=== PATIENT | male | born 1970 | race Caucasian/White ===

== ENCOUNTER 2023-03-24 18:38 | Inpatient (IN) | payer BC, MEDICAID, SELFPAY ==
[2023-03-24 18:54] VITALS: BMI 28.3
[2023-03-24 20:04] VITALS: BP 152/92; PULSE 106; RESP 18; TEMP 37.1; O2SAT 97
[2023-03-24] MEDS: trazodone 50 mg Tablet PO (20:40)
[2023-03-24] MEDS: hyDROXYzine 25 mg Capsule 50 MG PO (20:40)
[2023-03-24] MEDS: LORazepam 2 mg/mL INJ 1 mL IM (22:28)
[2023-03-24] MEDS: haloperidol inj 5 mg/mL INJ 1 mL IM (22:29)
[2023-03-24] MEDS: diphenhydrAMINE 50 mg/mL SDV 1mL IM (22:30)
--- NOTE | 2023-03-24 22:30 | PC.NURSE ---
Addendum entered and electronically signed by Marjorie Caicedo RN 03/24/23 23:53: Patient received the medication voluntary Original Note: Patient behavior Patient was speaking in word salad, taking scrubs off and trying to go into the females room multiple times. Given IM B-52
[2023-03-25 06:00] VITALS: RESP 18
--- NOTE | 2023-03-25 06:40 | PC.NURSE ---
Did not obtain patients vital due to patient sleeping and manic behavior resulting in B52.
--- NOTE | 2023-03-25 08:55 | PC.OT ---
OT EVALUATION ATTEMPTED. PATIENT SLEEPING SOUNDLY AND DOES NOT AWAKEN TO NAME. WILL ATTEMPT AGAIN AT A LATER TIME.
--- NOTE | 2023-03-25 10:17 | PC.NURSE ---
Unable to assess d/t patient being too delusional to follow requests. When this RN attempted to wake patient to assess him he began mumbling statements that didn't make much sense. He stated, roll my bed around. This RN stated there were no wheels on his bed and he replied, ya there are, it's on hydraulics. He then fell back asleep and this RN was unable to get him to stay awake long enough to do any of the assessment.
[2023-03-25 14:00] VITALS: BP 126/73; PULSE 73; RESP 16; TEMP 36.7; O2SAT 99
--- NOTE | 2023-03-25 15:32 | PC.OT ---
OT EVALUATION ATTEMPTED THIS P.M. PATIENT REMAINS ASLEEP.
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
[2023-03-25] MEDS: nicotine 2 mg Gum BUCCAL ×2 (16:24→21:19)
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
--- NOTE | 2023-03-25 18:16 | PC.NURSE ---
in room. patient appears to be confused. patient thinks somebody stole his cup, which is in his room. patient agitated, states that he wants a bedside table for his food, states that he had a table earlier in the day.
[2023-03-25] MEDS: ibuprofen 600 mg Tablet PO (20:55)
[2023-03-25] MEDS: OLANZapine 5 mg ODT PO (20:56)
[2023-03-25] MEDS: trazodone 50 mg Tablet PO (21:19)
[2023-03-25] MEDS: hyDROXYzine 25 mg Capsule 50 MG PO (21:19)
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
[2023-03-25 22:00] VITALS: RESP 18
--- NOTE | 2023-03-26 01:19 | PC.NURSE ---
Patient refused vitals. RR obtained
[2023-03-26] MEDS: ibuprofen 600 mg Tablet PO ×2 (03:40→10:27)
[2023-03-26] MEDS: diphenhydrAMINE 50 mg/mL SDV 1mL IM (03:42)
[2023-03-26] MEDS: haloperidol inj 5 mg/mL INJ 1 mL IM (03:42)
[2023-03-26] MEDS: LORazepam 2 mg/mL INJ 1 mL IM (03:43)
--- NOTE | 2023-03-26 03:44 | PC.NURSE ---
Addendum entered and electronically signed by Marjorie Caicedo RN 03/26/23 04:27: Correction, Patient went into the bathroom and Nurse tech stayed in the graham. Original Note: Patient behavior Patient came out of is room stomping. The sitter was able to get out of the way. He started charging down the graham towards the nurse tech and she got in one of the staff doors. Security and warehouse hand where called and present. A call was made to Dr. Kirk about repeated behavior this evening and he gave the order to give a B 52 and patient agreed without any issues.
[2023-03-26] MEDS: nicotine 21 mg Patch 1 PATCH TRANSDERMA (10:37)
--- NOTE | 2023-03-26 10:55 | PC.NURSE ---
During morning assessment, patient states that he has some anxiety and depression related to his daughter not coming to see him. When asked if he felt suicidal, patient grumbled, this nurse unable to determine a response. When this nurse attempted to pry further, patient appeared agitated, so the subject was dropped. Patient given Ibuprofen for body aches, and nicotine patch. Patient ate breakfast. sitter present, resting in bed.
[2023-03-26 14:00] VITALS: BP 121/84; PULSE 99; RESP 16; TEMP 36.9; O2SAT 97
--- NOTE | 2023-03-26 15:49 | PC.OT ---
ATTEMPTED OT EVALUATION ON 03/26/2023 WITH NURSING SAYING TO ATTEMPT AT LATER TIME DUE TO PT AGITATED. WILL ATTEMPT EVAL AT LATER TIME.
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
[2023-03-26] MEDS: nicotine 2 mg Gum BUCCAL (19:30)
[2023-03-26 19:50] VITALS: BP 127/82; PULSE 110; RESP 18; TEMP 36.6; O2SAT 98
[2023-03-26] MEDS: OLANZapine 5 mg TABLET PO (20:30)
--- NOTE | 2023-03-27 02:27 | PC.NURSE ---
Pt continues to be extremely manic with pressured rambling speech. Con't to be disruptive on the unit, dancing and singing. One on one care and redirection provided as pt is extremely loud pacing up and down the hallway. Behavior monitoring continues.
[2023-03-27] MEDS: cetylpyridinium Lozenge 1 EACH MUCOUS MEM ×4 (05:22→20:09)
[2023-03-27 06:00] VITALS: BP 148/107; PULSE 97; RESP 18; TEMP 36.8; O2SAT 97
--- NOTE | 2023-03-27 06:08 | PC.NURSE ---
Pt in dayroom watching t.v. w/co-pt, sitter is at side. Pt is perseverating on wanting 2-3 cough drops to keep on him so that staff won't have to come running. Explained to patient needing a cough drop was not an emergency, and the next time he would receive one would be in 2 hours from last dosing. Pt states his mouth will get super dry by then, water offered and pt declined. He is also demanding Ludens cough drops, however it has been explained multiple times that we do not carry that brand of cough drops. One on one care and redirection provided w/minimal effect. Behavior monitoring continues.
[2023-03-27] MEDS: OLANZapine 5 mg ODT PO (08:35)
[2023-03-27] MEDS: nicotine 2 mg Gum BUCCAL ×2 (08:48→10:52)
[2023-03-27] MEDS: haloperidol 5 mg Tablet PO (10:59)
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
[2023-03-27] MEDS: hyDROXYzine 25 mg Capsule 50 MG PO ×2 (11:41→20:09)
[2023-03-27 13:35] VITALS: BP 164/110; PULSE 91; RESP 12; TEMP 36.6; O2SAT 97
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
[2023-03-27] MEDS: acetaminophen 325 mg Tablet 650 MG PO (16:48)
[2023-03-27] MEDS: hydroCHLOROthiazide 25 mg Tablet PO (16:48)
[2023-03-27 19:21] VITALS: BP 166/85; PULSE 79; RESP 18; TEMP 36.6; O2SAT 96
[2023-03-27] MEDS: ibuprofen 600 mg Tablet PO (20:09)
[2023-03-27] MEDS: OLANZapine 5 mg TABLET 10 MG PO (20:09)
--- NOTE | 2023-03-27 21:23 | PC.NURSE ---
PT HAS BEEN IN BED, THEN TO NURSES STATION, THEN WILL PACE RAPIDLY. HAS RAPID PRESSURED SPEECH WITH FLIGHT OF IDEA. PT IS DEMANDING AND STATES I CAN'T WAIT, IF I NEED SOMETHING IT HAS TO BE NOW. PT WAS ENCOURAGED TO WAIT DUE TO STAFF ASSISTING WITH AN EMERGENT SITUATION. PT DENIES SI/HI AND AVH AT THIS TIME. REPORTS PAIN IN RIGHT FOOT/SIDE AND RIGHT KNEE, IBUPROFEN WAS GIVEN ORDERED PT OBSERVED TO HAVE BRUISING AND ABRASIONS TO LEFT SIDE AND BRUISING TO LEFT GLUTEAL. REPORTS ANXIETY 01/07 AND DEPRESSION 11/07. PT WAS GIVEN VISTARIL FOR ANXIETY REQUESTED BY PT. TOOK NIGHT TIME MEDICATIONS DIRECTED. PT CONTINUES TO HAVE SITTER AT BEDSIDE DUE TO SI AND INCREASED RISK FOR VIOLENCE. PT CONTINUES TO BE DEMANDING WITH STAFF, AND STATES I'M SICK OF THIS DUDE FOLLOWING ME AROUND, PT WAS EDUCATED THAT HE HAD EXTRA STAFF TO WATCH OVER HIM AND KEEP HIM SAFE. PT THEN STATED FINE IT DOESN'T MAKE ME HAPPY. PT THEN INSISTED THAT THE AID CLEAN THE WATER OUT OF HIS FLOOR AND GIVE HIM EXTRA SOCKS AND BLANKETS. PT WAS EDUCATED THAT HE IS UNABLE TO HAVE EXTRA LINENS DUE TO HIM ATTEMPTING TO HURT HIMSELF. PT VERBALIZED UNDERSTANDING BUT WAS STILL UNHAPPY HE DID NOT GET HIS WAY. PT CONTINUES TO BE UP AND DOWN AND INTRUSIVE. SUPPORT WAS VOICED.
[2023-03-28] MEDS: trazodone 50 mg Tablet PO ×2 (01:15→20:54)
[2023-03-28] MEDS: haloperidol 5 mg Tablet PO ×2 (01:16→20:54)
[2023-03-28] MEDS: cetylpyridinium Lozenge 1 EACH MUCOUS MEM (01:16)
[2023-03-28 06:00] VITALS: BP 145/99; PULSE 90; RESP 18; TEMP 36.7; O2SAT 95
[2023-03-28] MEDS: acetaminophen 325 mg Tablet 650 MG PO ×2 (06:41→16:30)
[2023-03-28] MEDS: hydroCHLOROthiazide 25 mg Tablet PO (09:11)
[2023-03-28] MEDS: ibuprofen 600 mg Tablet PO ×2 (09:14→20:54)
--- NOTE | 2023-03-28 09:43 | PC.NURSE ---
Olanzipine 5 mg sl given for increased agitation and anxiety rated 9/10.
[2023-03-28 13:59] VITALS: BP 148/90; PULSE 101; RESP 16; TEMP 36.6; O2SAT 96
--- NOTE | 2023-03-28 14:49 | W.PM.NPUPNS ---
Subjective NPU Subjective: Patient is a 52-year-old male with a history of methamphetamine abuse admitted with psychosis and suicidal ideation. Patient reported difficulties with his sleep. He reported that his scabs were itchy. He had reported that he did not have plans to hurt himself when he jumped into the traffic. He reported that he had been using methamphetamine. He continued to report some depression but stated that he was not having thoughts of hurting himself. Patient had endorsed being homeless at this time. The patient was redirectable but continued to struggle with engaging in self-care. Mental Status Exam MSE Comments: Patient is a thin white male who had multiple bruises on his face and body. He had fleeting eye contact. His gait was normal in rate. He had a disheveled appearance with poor hygiene and was malodorous. He appeared less confused today. His speech continued to be mumbled while struggling with rambling profane speech. His thought process appeared more linear but derailed later. His thought content showed no evidence of suicidal ideation. He did appear to be responding to internal stimuli. There was continued presence of paranoia. He was alert and oriented to his name and place but not date. His insight is impaired. His judgment is poor. His impulse control appeared limited. Vitals/I&O/Wt Last Vital Signs Temp 97.9 F 03/28/23 13:59 Pulse 101 H 03/28/23 13:59 Resp 16 03/28/23 13:59 BP 148/90 03/28/23 13:59 Pulse Ox 96 03/28/23 13:59 O2 Del Method Room Air 03/28/23 13:59 Weight last 48 hrs Weight 52.844 kg A&P Assessment and plan (1) Psychotic disorder with hallucinations: (2) Methamphetamine abuse: (3) Suicidal ideation: Plan 52-year-old male admitted with presumed methamphetamine use who appears psychotic and possibly suicidal admitted involuntarily after jumping in front of traffic. 1. ?Encourage individual, group and milieu therapy. 2. Recommend sober living treatment at the highest level of care to which the patient is willing to commit. 3. Continue q-15 minute checks for safety.? 4. Increase Zyprexa to 15mg at night to target psychosis. 5. Continue on involuntary hold, check xray of limbs as patient reporting significant pain in lower limbs and hands. Involuntary Hold Information 96 Hour Hold: 96 Hour Involuntary Admission: Yes 96 Hour Hold Ending Date: 03/30/23 96 Hour Hold Ending Time: 18:22 Attestations NPU Medical Necessity Statement*: Inpatient hospitalization is medically necessary and deemed to be the clinically appropriate intervention at this time. We will monitor and initiate medications as indicated. His likely length of stay is 5 to 7 days. Coding Level of Care Code Acute Code for g Fwd Diagnoses Psychotic disorder with hallucinations F29 Methamphetamine abuse F15.10 Suicidal ideation R45.851
[2023-03-28] MEDS: nicotine 2 mg Gum BUCCAL ×2 (14:51→18:37)
[2023-03-28] MEDS: OLANZapine 5 mg ODT PO (16:12)
[2023-03-28] MEDS: neomycin-poly-bacitracin oint 28 gm 1 APPLIC TOPICAL (16:13)
--- NOTE | 2023-03-28 16:18 | PC.NURSE ---
Patient irritated and pacing halls. Patient verbalized agitation with staff due to not getting reading glasses. Zyprexa 5 mg sl given. Patient request for Neomycin be given topically to abrasions early.
--- NOTE | 2023-03-28 16:33 | PC.NURSE ---
Patient with c/o headache rated 7/10. Tylenol 650 mg po given for this.
--- NOTE | 2023-03-28 20:52 | PC.NURSE ---
PT IN HALLWAY DEMANDING HE TAKE A SHOWER, THEN DEMANDS THE STAFF GIVE HIM REECES PIECES. PT WAS GIVEN ITEMS TO SHOWER AND OFFERED A SNACKS. PT TOOK ALL 20 SNACKS OUT OF THE BIN AND TRIED TO TAKE TO HIS ROOM. PT WAS VERBALLY REDIRECTED TO BRING THE SNACKS BACK AND LIMIT HIS SNACKS TO 2 ITEMS. PT WAS UPSET AND CUSSED STAFF. PT CONTINUES ONE ON ONE CARE BY SITTER DUE TO INCREASED RISK FOR VIOLENCE AND SUICIDAL THOUGHTS. PT HAS DENIES SUICIDAL THOUGHT THE LAST TWO SHIFT THIS RN WAS PRESENT. PT RATES ANXIETY 5/10 WHICH HE IS OBSERVED TO HAVE INDICATIONS THE SCORE IS HIGHER THAN HE STATES. REPORTS DEPRESSION 7/10. PTS ZYPREXA WAS INCREASED TO 15 MG AT BEDTIME. PT REQUESTS SOMETHING TO HELP HIM SLEEP AND SOMETHING FOR ANXIETY. PT HAS NOT COME TO NURSES STATION TO TAKE MEDS OF YET. REDNESS TO LEFT SIDE OF BACK IS OBSERVED WHERE PT HAS A LARGE ABRASION. SCABS TO LEFT ELBOW WITH REDNESS AND SLOUGNING OF SCAB IS NOTED TO THE UPPER SCABBED AREA. TRIPLE ANTIBIOTIC APPLIED AFTER PT SHOWERED. PT DENIES SI/HI AND AVH AT THIS TIME. PT LIKES HAVING HIS SITTER TONIGHT AND IS VERY TALKATIVE WITH PRESSURED RAPID SPEECH WHEN SPEAKING. PT HAS EPISODES OF HIGH ANXIETY BUT HAS NOT SHOWN ANY VIOLENCE TOWARDS STAFF OR PEERS. WILL REASSESS NEED FOR SITTER WITH DR. HAMZAH MURILLO AFTER PT TAKES MEDICATIONS AT BEDTIME. ALL QUESTIONS ANSWERED AND SUPPORT VOICED.
[2023-03-28] MEDS: nicotine 4 mg lozenge MUCOUS MEM (20:54)
[2023-03-28] MEDS: OLANZapine 10 mg TABLET 15 MG PO (20:54)
[2023-03-28 21:01] VITALS: BP 162/101; PULSE 86; RESP 18; O2SAT 98
[2023-03-29] MEDS: acetaminophen 325 mg Tablet 650 MG PO (01:05)
[2023-03-29] MEDS: diphenhydrAMINE 50 mg/mL SDV 1mL IM (03:20)
[2023-03-29] MEDS: LORazepam 2 mg/mL INJ 1 mL IM (03:21)
[2023-03-29] MEDS: haloperidol inj 5 mg/mL INJ 1 mL IM (03:21)
--- NOTE | 2023-03-29 03:40 | PC.NURSE ---
PT CONTINUED TO COME TO NURSES STATION AND REQUEST SNACKS. PT WAS GIVEN 4 SANDWICHES, 3 BAGS OF CHEEZITS, 2 BAGS OF TRAILMIX, 1 PUDDING, YOGURT AND 2 BAGS OF GOLDFISH. PT WAS VERBALLY REDIRECTED AND EDUCATED THAT THE UNIT WAS OUT OF SNACKS AND HE HAD EATEN ALL THE SANDWICHES THAT THE UNIT HAD. PT BEGAN TO PACE AND RUN UP AND DOWN THE HALLS. PT THEN STATED I CAN'T SLEEP I'M HAVING FUCKING NIGHTMARES, I TOLD YOU THAT SHIT TEN TIMES ALREADY. PT WAS MEDICATED PREVIOUSLY WITH 50MG OF TRAZODONE, 5 MG OF HALDOL AND 15 MG OF ZYPREXA WITH NO RESOLVE OR EFFECTIVENESS NOTED. PT WAS ASKED SEVERAL TIMES TO STOP RUNNING AND CUSSING OUT STAFF. PT CONTINUED TO DECLINE BEING DEMANDING AND CUSSING/INSULTING STAFF MEMBERS. AT 321 AM PT WAS GIVEN 2 MG OF ATIVAN AND 5 MG OF HALDOL TO RIGHT DELTOID BY THIS RN AND 50 MG OF BENADRYL BY CLAIM BENEFIT SPECIALIST. PT SAT ON BENCH QUIETLY AND RECEIVED THE INJECTIONS THEN POPPED UP FAST AND STARTED LOOKING FOR MY GLASSES, I CAN'T FUCKING FIND THEM. PT WAS INFORMED HIS GLASSES WERE ON THE LEDGE OF THE NURSES STATION WHERE HE LEFT THEM. PT THEN RAN INTO ROOM AND WENT TO BED. PT CURRENTLY RESTING IN BED WITH EYES CLOSED.
--- NOTE | 2023-03-29 05:05 | PC.NURSE ---
AT 0445 NEW ORDERS RECEIVED TO DISCONTINUE ONE ON ONE SITTER. PT IS HAS NOT ENDORSED ANY SUICIDAL THOUGHTS OR INTENTIONS OF SELF HARM FOR THE LAST 48 HOURS. PT HAS EXTREME ANXIETY AT TIMES BUT PT IS ABLE TO BE MANAGED WITH STAFF INTERVENTIONS AND PRN MEDICATIONS NEEDED. PT CURRENTLY RESTING IN BED WITH EYES CLOSED. ONE ON ONE DISCONTINUED IN [place].
[2023-03-29 06:00] VITALS: RESP 15
--- NOTE | 2023-03-29 06:32 | PC.NURSE ---
Pt refused vital signs. Respiration Rate 15
[2023-03-29] MEDS: hydroCHLOROthiazide 25 mg Tablet PO (09:35)
[2023-03-29] MEDS: neomycin-poly-bacitracin oint 28 gm 1 APPLIC TOPICAL ×2 (09:36→17:24)
[2023-03-29] MEDS: nicotine 21 mg Patch 1 PATCH TRANSDERMA (11:12)
[2023-03-29 13:08] VITALS: BP 122/75; PULSE 98; RESP 16; TEMP 36.8; O2SAT 98
--- NOTE | 2023-03-29 16:48 | P.NPUPN_ITS ---
Subjective NPU Subjective: Patient is a 52-year-old male with a history of methamphetamine abuse admitted with psychosis and suicidal ideation. Patient had denied having any thoughts of hurting himself or others. He had admitted to the use of methamphetamine and stated that its use had made him do some crazy things . He had reported significant pain. He reported having been unable to fall asleep last night. He had appeared less distracted and states that he remains homeless. He had reported having few social supports. 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 He had continued to refrain from the use of a shower and showed evidence of poor self-care at this time. Mental Status Exam MSE Comments: Patient is a thin white male who had multiple bruises on his face and body. He had fleeting eye contact. His gait was normal in rate. He had a disheveled appearance with poor hygiene and was malodorous. His speech was normal in volume, mild slurring noted, and normal rate. His thought process appeared more linear with no derailment today. His thought content showed no evidence of suicidal ideation or homicidal ideation. He did not appear to be re sponding to internal stimuli. There was no evidence of paranoia. He was alert and oriented to his name and place, month and year. His insight is impaired. His judgment is poor. His impulse control appeared limited. Vitals/I&O/Wt Last Vital Signs Temp 98.2 F 03/29/23 13:08 Pulse 98 03/29/23 13:08 Resp 16 03/29/23 13:08 BP 122/75 03/29/23 13:08 Pulse Ox 98 03/29/23 13:08 O2 Del Method Room Air 03/29/23 13:08 Weight last 48 hrs Weight 52.844 kg A&P Assessment and plan (1) Psychotic disorder with hallucinations: (2) Methamphetamine abuse: (3) Suicidal ideation: Plan 52-year-old male admitted with presumed methamphetamine use who appears psychotic and possibly suicidal admitted involuntarily after jumping in front of traffic. 1. ?Encourage individual, group and milieu therapy. 2. Recommend sober living treatment at the highest level of care to which the patient is willing to commit. 3. Continue q-15 minute checks for safety.? 4. Continue Zyprexa at 15mg at night to target psychosis. 5. Continue on involuntary hold, check xray of limbs as patient reporting significant pain in lower limbs and hands. Involuntary Hold Information 96 Hour Hold: 96 Hour Involuntary Admission: Yes 96 Hour Hold Ending Date: 03/30/23 96 Hour Hold Ending Time: 18:22 Attestations NPU Medical Necessity Statement*: Inpatient hospitalization is medically necessary and deemed to be the clinically appropriate intervention at this time. We will monitor and initiate medications as indicated. His likely length of stay is 3-4 days. Coding Level of Care Code Acute Code for g Fwd Diagnoses Psychotic disorder with hallucinations F29 Methamphetamine abuse F15.10 Suicidal ideation R45.851
[2023-03-29] MEDS: simethicone 80 mg Chew PO (18:26)
--- NOTE | 2023-03-29 19:11 | PC.NURSE ---
DR. DAVID WAS NOTIFIED OF PTS CONTINUED COMPLAINTS OF HAVING NIGHTMARES THE LAST 3 NIGHTS. NEW ORDERS RECEIVED TO START PRAZOSIN 1 MG PO AT HS. ORDERS PLACED IN [facility], PT EDUCATED ON NEW ORDERS. PT CONTINUES TO HAVE EPISODES AND OUTBURST OF YELLING, STOMPING AND CUSSING STAFF. PT REDIRECTED SEVERAL TIMES WITH NO RESOLVE. WILL CONTINUE TO VERBALLY REDIRECT AND OFFER COPING STRATEGIES FOR PT TO USE.
--- NOTE | 2023-03-29 19:33 | PC.NURSE ---
DR. FLORES NOTIFIED THIS RN AND PRAZOSIN WAS INCREASED TO 2 MG PO AT BEDTIME FOR REPORTED NIGHTMARES FROM PT. PT REPORTS HAVING NIGHTMARES EVERY NIGHT SO BAD I CAN'T EVEN SLEEP. PT WAS EDUCATED ON PRAZOSIN USES AND SIDE EFFECTS OF MEDICATIONS. PT EDUCATED TO GET UP SLOWLY WHEN HE AWAKES AT NIGHT AND ASK FOR ASSISTANCE IF NEEDED. ALL QUESTIONS ANSWERED AND SUPPORT VOICED.
[2023-03-29] MEDS: OLANZapine 10 mg ODT 15 MG PO (20:01)
[2023-03-29] MEDS: ibuprofen 600 mg Tablet PO (20:01)
[2023-03-29] MEDS: benztropine 1 mg Tablet PO (20:01)
[2023-03-29] MEDS: nicotine 4 mg lozenge MUCOUS MEM (20:01)
[2023-03-29] MEDS: trazodone 50 mg Tablet PO (20:01)
[2023-03-29] MEDS: haloperidol 5 mg Tablet PO (20:02)
[2023-03-29] MEDS: prazosin 1 mg Capsule 2 MG PO (20:02)
[2023-03-29 21:06] VITALS: BP 157/102; PULSE 101; RESP 18; TEMP 36.9; O2SAT 98
[2023-03-30] MEDS: acetaminophen 325 mg Tablet 650 MG PO (02:47)
[2023-03-30 06:00] VITALS: BP 144/85; PULSE 92; RESP 18; TEMP 37; O2SAT 98
[2023-03-30] MEDS: hydroCHLOROthiazide 25 mg Tablet PO (08:08)
[2023-03-30] MEDS: neomycin-poly-bacitracin oint 28 gm 1 APPLIC TOPICAL ×2 (08:09→17:57)
[2023-03-30] MEDS: nicotine 4 mg lozenge MUCOUS MEM ×3 (08:55→18:37)
[2023-03-30 14:00] VITALS: BP 143/95; PULSE 114; RESP 16; TEMP 36.5; O2SAT 96
[2023-03-30] MEDS: calcium carbonate 500 mg Chew Tablet PO (16:06)
--- NOTE | 2023-03-30 17:36 | W.PM.NPUPNS ---
Subjective NPU Subjective: Patient is a 52-year-old male with a history of methamphetamine abuse admitted with psychosis and suicidal ideation. The patient had reported that he had been homeless. He wished to get a new start and was willing to consider inpatient rehabilitation for the use of methamphetamine. He had reported a past history of PTSD and reported continued nightmares. He had slept better with the olanzapine but stated that he felt tired in the morning. Mental Status Exam MSE Comments: Patient is a thin white male who had multiple bruises on his face and body. He had fair eye contact. His gait was normal in rate. He had a disheveled appearance with slightly improved eye contact. His speech was normal in volume, mild slurring noted, and normal rate. His thought process appeared more linear with no derailment today. His thought content showed no evidence of suicidal ideation or homicidal ideation. He did not appear to be responding to internal stimuli. There was no evidence of paranoia. He was alert and oriented to his name and place, month and year. His insight is improving. His judgment is poor. His impulse control appeared to be improving. Vitals/I&O/Wt Last Vital Signs Temp 97.7 F 03/30/23 14:00 Pulse 114 H 03/30/23 14:00 Resp 16 03/30/23 14:00 BP 143/95 03/30/23 14:00 Pulse Ox 96 03/30/23 14:00 O2 Del Method Room Air 03/30/23 14:00 A&P Assessment and plan (1) Psychotic disorder with hallucinations: (2) Methamphetamine abuse: (3) Suicidal ideation: Plan 52-year-old male admitted with presumed methamphetamine use who appears psychotic and possibly suicidal admitted involuntarily after jumping in front of traffic. 1. ?Encourage individual, group and milieu therapy. 2. Recommend sober living treatment at the highest level of care to which the patient is willing to commit. 3. Continue q-15 minute checks for safety.? 4. Continue Zyprexa at 15mg at night to target psychosis. Continue Prazosin 2mg at night. 5. Continue on involuntary hold, check xray of limbs as patient reporting significant pain in lower limbs and hands. Involuntary Hold Information 96 Hour Hold: 96 Hour Involuntary Admission: Yes 96 Hour Hold Ending Date: 03/30/23 96 Hour Hold Ending Time: 18:22 Attestations NPU Medical Necessity Statement*: Inpatient hospitalization is medically necessary and deemed to be the clinically appropriate intervention at this time. We will monitor and initiate medications as indicated. His likely length of stay is 3-4 days. Coding Level of Care Code Acute Code for Chg Fwd Diagnoses Psychotic disorder with hallucinations F29 Methamphetamine abuse F15.10 Suicidal ideation R45.851
[2023-03-30] MEDS: ibuprofen 600 mg Tablet PO (18:06)
[2023-03-30] MEDS: prazosin 1 mg Capsule 2 MG PO (20:01)
[2023-03-30] MEDS: OLANZapine 10 mg ODT 15 MG PO (20:01)
[2023-03-30 20:41] VITALS: BP 156/92; PULSE 116; RESP 16; TEMP 36.9; O2SAT 98
[2023-03-30 20:42] VITALS: BP 143/100; PULSE 114; RESP 18; TEMP 36.9; O2SAT 98
[2023-03-31] MEDS: hyDROXYzine 25 mg Capsule 50 MG PO (01:19)
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
[2023-03-31] MEDS: acetaminophen 325 mg Tablet 650 MG PO (03:27)
--- NOTE | 2023-03-31 03:29 | PC.NURSE ---
Addendum entered by Page Azul RN 03/31/23 03:49: Patient given 650 mg tylenol po for this. Original Note: Patient at nurses station with c/o headache rated 9/10. Patient also voices increase in nightmares.
[2023-03-31] MEDS: haloperidol 5 mg Tablet PO (03:38)
--- NOTE | 2023-03-31 03:41 | PC.NURSE ---
Patient at murses station demanding a shot. Extensive listening with education given on medications reviewed with patient without success or learning observed. Patient given Haldol 5mg po for increased agitation.
[2023-03-31 06:00] VITALS: RESP 18
[2023-03-31 06:46] VITALS: BP 133/87; PULSE 91; RESP 16; TEMP 36.4; O2SAT 98
[2023-03-31] MEDS: hydroCHLOROthiazide 25 mg Tablet PO (08:30)
[2023-03-31] MEDS: neomycin-poly-bacitracin oint 28 gm 1 APPLIC TOPICAL (08:30)
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
[2023-03-31 09:11] VITALS: BP 133/87; PULSE 91; RESP 16; TEMP 36.4; O2SAT 98
== END 2023-03-31 09:22 | disposition home or self-care (01) | DRG 885 ==
PROVIDERS: Admitting Provider Psychiatry & Neurology Psychiatry; Visit Provider Psychiatry & Neurology Psychiatry
DX: F29 Unspecified psychosis not due to a substance or known physiological condition (principal); R45.851 Suicidal ideations; Z59.00 Homelessness unspecified; F17.210 Nicotine dependence, cigarettes, uncomplicated; F15.10 Other stimulant abuse, uncomplicated; F43.10 Post-traumatic stress disorder, unspecified
CPT/HCPCS: 73110; 73130; 73610; 73630; 96372; 97150; 97165; J1200; J1630; J2060